=== PATIENT | female | born 1960 | race Hispanic/Latino ===

== ENCOUNTER 2017-10-07 10:36 | Observation (INO) | payer MEDICARE, OTHER ==
[~2017-10-07] VITALS: Ht 157.5 cm; Wt 107.3 kg
[~2017-10-07 10:36] MED LIST: ACTOS45 MG PO; ALLOPURINOL100 MG PO; ASPIR 8181 MG PO; ATENOLOL100 MG PO; CIPRO500 MG PO; CLINDAMYCIN HC150 MG PO; CLONIDINE HCL0.3 MG PO; CYCLOBENZAPRINE5 MG PO; HUMALOG100 UNITS/ SC; HYDROCHLOROTH12.5 M1 PO; HYDROCODON-ACE1 EA12 PO; K DUR10 MEQ PO; LANTUS100 UNITS/ SQ; LASIX40 MG PO; LEVOCETIRIZINE D5 MG PO; LISINOPRIL20 MG PO; LOSARTAN POTAS100 MG PO; PEPCID40 MG PO; PLAVIX75 MG PO; PRAVASTATIN SOD40 MG PO; TOPIRAMATE25 MG PO; TRAZODONE HCL50 MG PO; TYLENOL # 31 EA PO; TYLENOL WITH C1 EAC1 PO; TYLENOL WITH C1 EACH PO; ULTRAM 50MG50 MG PO
[2017-10-07] MEDS ORDERED: ASPIRIN 81 MG CHEW TAB PO ONE ×2 (11:00→12:45)
[2017-10-07 11:20] LABS: BASOPHILS % 0.6 % (0.0-1.0); EOSINOPHILS # (AUTO) 0.4 (0.0-0.4); EOSINOPHILS % 5.3 % (0.0-6.0); HEMATOCRIT 32.3 % (34.2-44.1); HEMOGLOBIN 10.6 g/dL (12.0-16.0); LYMPHOCYTES # (AUTO) 1.1 (1.0-3.2); LYMPHOCYTES % 16.9 % (18.0-39.1); MEAN CORPUSCULAR HEMOGLOBIN 31.4 pg (28-32); MEAN CORPUSCULAR HGB CONC 32.8 g/dL (31-35); MEAN CORPUSCULAR VOLUME 95.6 fL (81-99); MONOCYTES # (AUTO) 0.5 (0.2-0.8); MONOCYTES % 6.9 % (4.4-11.3); NEUTROPHILS # (AUTO) 4.6 (2.1-6.9); NEUTROPHILS % 69.8 % (38.7-80.0); PLATELET COUNT 266 x10e3/uL (140-360); RED BLOOD COUNT 3.38 x10e6/uL (3.6-5.1); RED CELL DISTRIBUTION WIDTH 13.9 % (11.7-14.4)
[2017-10-07 11:22] LABS: CLARITY,URINE CLEAR (CLEAR); COLOR,URINE YELLOW (YELLOW); KETONES,URINE NEGATIVE (NEGATIVE); LEUKOCYTE ESTERASE ,URINE NEGATIVE (NEGATIVE); NITRITE,URINE NEGATIVE (NEGATIVE); PROTEIN,URINE DIPSTICK NEGATIVE (NEGATIVE)
[2017-10-07 11:23] LABS: BILIRUBIN,URINE NEGATIVE (NEGATIVE); URINE UROBILINOGEN 1 mg/dL (0.2 - 1)
[2017-10-07 11:24] LABS: AMPHETAMINES SCREEN,URINE POSITIVE (NEGATIVE); BENZODIAZEPINES SCREEN,URINE NEGATIVE (NEGATIVE); PHENCYCLIDINE SCREEN,URINE NEGATIVE (NEGATIVE)
[2017-10-07 11:28] LABS: INR 1.13; PARTIAL THROMBOPLASTIN TIME 29.2 seconds (23.8-35.5); PROTHROMBIN TIME 13.6 seconds (11.9-14.5)
[2017-10-07 11:36] LABS: ALBUMIN 3.8 g/dL (3.5-5.0); ALBUMIN/GLOBULIN RATIO 1.2 (0.8-2.0); ANION GAP 14.6 mmol/L (8-16); CALCIUM 9.5 mg/dL (8.4-10.2); CREATININE, SERUM 1.84 mg/dL (0.57-1.11); POTASSIUM 3.6 mmol/L (3.5-5.1)
[2017-10-07 11:42] LABS: CREATINE KINASE MB 1.3 ng/mL (0-5.0)
[2017-10-07 11:46] LABS: BACTERIA,URINE MODERATE /HPF; EPITHELIAL CELLS,URINE MODERATE /LPF; RBC,URINE 0-5 /HPF (0-5); WBC,URINE (MAN) 0-5 /HPF (0-5)
[2017-10-07] MEDS ORDERED: ONDANSETRON HCL INJ 2 MG/ML VIAL IV PRN (12:45)
[2017-10-07] MEDS: SODIUM CHLORIDE 0.9% 1000ML 1,000 ML IV SCH ×2 (12:55→21:55)
--- NOTE | 2017-10-07 13:16 | Diagnostic Imaging Report ---
EXAMINATION: CHEST 2 VIEWS INDICATION: \S\ORDER PLACED BY \[id number] \S\[id number] \S\Y COMPARISON: Chest radiograph 12/06/2016 FINDINGS: PA and lateral views TUBES and LINES: None. LUNGS: Lungs are well inflated. Stable linear atelectasis in the left lower lobe. There is no evidence of pneumonia or pulmonary edema. PLEURA: No pleural effusion or pneumothorax. HEART AND MEDIASTINUM: The cardiomediastinal silhouette is unremarkable. BONES AND SOFT TISSUES: Mild multilevel degenerative changes of the thoracic spine. Soft tissues are unremarkable. UPPER ABDOMEN: No free air under the diaphragm. IMPRESSION: No acute thoracic abnormality. A stable subsegmental atelectasis in the left lower lobe. Signed by: Dr. Elina Goel M.D. on 10/07/2017 1:12 PM
[2017-10-07 13:35] VITALS: BP 158/75
[2017-10-07 14:00] VITALS: BP 158/75
[2017-10-07 14:29] VITALS: BP 158/75
[2017-10-07] MEDS ORDERED: BUMETANIDE1 MG PO (14:48)
[2017-10-07] MEDS ORDERED: LISINOPRIL10 MG PO (14:48)
[2017-10-07] MEDS ORDERED: AMBIEN10 MG PO (14:48)
[2017-10-07] MEDS ORDERED: LANTUS 3ML100 UNITS/ SC (14:48)
[2017-10-07] MEDS ORDERED: AMLODIPINE BESYL5 MG PO (14:48)
[2017-10-07] MEDS ORDERED: CLONIDINE HCL0.3 MG PO (14:48)
[2017-10-07] MEDS ORDERED: ZOFRAN ODT4 MG PO (14:48)
[2017-10-07] MEDS ORDERED: AMLODIPINE BESYLATE 5 MG TAB PO SCH (15:45)
[2017-10-07] MEDS ORDERED: HYDRALAZINE HCL 20 MG/ML VIAL IV PRN ×2 (16:00→16:30)
[2017-10-07] MEDS ORDERED: INSULIN DETEMIR 100 UNIT/ML PEN SQ SCH (16:00)
[2017-10-07] MEDS ORDERED: DEXTROSE 50% SYRINGE 50 ML IV PRN (16:00)
[2017-10-07 16:23] VITALS: BP 116/53
[2017-10-07] MEDS: FAMOTIDINE 20 MG TAB PO SCH (16:56)
[2017-10-07] MEDS: INSULIN REGULAR, HUMAN 100 UNIT/1 ML 3ML VIAL SQ SCH ×2 (16:56→21:35)
--- NOTE | 2017-10-07 17:08 | History and Physical ---
PRIMARY CARE PROVIDER: Dr. Aguilar. CHIEF COMPLAINT: Chest pain and vertigo. HISTORY OF PRESENT ILLNESS: Ms. Alejandra is a 57-year-old lady who had an episode of vertigo at home followed by some chest tightness, and EMS was called and the patient was transported to the ER. She was asymptomatic in the ER. REVIEW OF SYSTEMS: She denies fever, chills or weight loss. She denies sinus congestion or sore throat. She had chest pain and tightness as noted without diaphoresis or shortness of breath. She denies shortness of breath, wheezing or cough. She denies abdominal pain, nausea, vomiting or melena. She denies dysuria or flank pain. She denies rash or pruritus. She denies joint pain or swelling. She denies bleeding or bruising. She denies headache. She does complain of a transient episode of vertigo, and she denies any loss of consciousness. She denies depression, agitation, homicidal or suicidal ideation. PAST MEDICAL HISTORY: Significant for hypertension, type 2 diabetes, coronary artery disease, diastolic congestive heart failure, and chronic kidney disease stage 3. Her regular medications include: Allopurinol 100 mg daily. Norvasc 5 mg daily. Plavix 75 mg daily. Lisinopril 20 mg daily. Pravastatin 40 mg daily. Ambien 10 mg at bedtime. Lantus insulin 30 units before breakfast and Humalog 10 units before each meal. Clonidine 0.3 mg at bedtime. Bumex 1 mg daily. Tramadol as needed for pain. She has a history of 4 coronary stents placed 4 years ago when she had a heart attack. She has had bilateral total knee replacements, and she has had a cholecystectomy. SHE HAS NO KNOWN DRUG ALLERGIES. FAMILY HISTORY: Significant for hypertension, diabetes and heart disease. SOCIAL HISTORY: The patient is . She is bilingual, and she does speak fairly good Amharic. She does not smoke, drink or use illegal drugs, and she is generally independently functioning. PHYSICAL EXAM: PSYCHIATRIC: She is alert and oriented times 3 with normal mood and affect. CONSTITUTIONAL: She has a normal body habitus. Is in no acute distress. VITAL SIGNS: Blood pressure 158/75. Pulse 69 and regular. Respiratory rate 16. O2 sat 99%. Temperature 96.5. HEENT: Her head is atraumatic. Her eyes are anicteric with clear conjunctivae. Ears and nares are without erythema or discharge. Oropharynx is clear. NECK: Is supple with no mass or thyromegaly. LYMPHATIC SYSTEM: She has no palpable cervical, axillary or inguinal adenopathy. CARDIOVASCULAR: Her heart has a regular rate and rhythm without murmur or extra heart sound. She has no peripheral edema. She has palpable dorsal pedal pulses. RESPIRATORY: Lungs are clear to auscultation and percussion with normal respiratory effort. GASTROINTESTINAL: Her abdomen is soft without organomegaly, masses or tenderness. She has normal bowel sounds present. CUTANEOUS: Her skin is warm and dry to the touch with no rash or skin breakdown. MUSCULOSKELETAL: Her joints are in normal alignment without erythema or swelling. She has no calf tenderness. NEUROLOGIC: Exam is nonfocal with intact cranial nerves and no motor or sensory deficits. DIAGNOSTIC STUDIES AND LABORATORY: Chest x-ray shows no acute disease. Her EKG shows normal sinus rhythm with possible old anterior WI. Her initial troponin 0.014. Her chemistry panel shows normal electrolytes. CO2 is 25. Creatinine 1.84, BUN 35 for a GFR of 28. Calcium is 9.5. Glucose is 230. Transaminases, bilirubin and alk phos are normal. CBC shows a white count of 6.6 with 70% neutrophils and 17% lymphocytes, hemoglobin 10.6, hematocrit 32.3 and platelet count 266,000. Coags are normal. IMPRESSION AND PLAN: 1. Chest pain, rule out acute coronary syndrome. The patient will have serial cardiac enzymes done and we will consult Cardiology in view of her history of coronary disease to assess risk stratification for any further diagnostic testing. 2. Hypertension complicated by coronary artery disease, complicated by diastolic congestive heart failure and complicated by chronic kidney disease stage 3. The patient's blood pressure is controlled. Will continue Norvasc and lisinopril but will hold Bumex and will use p.r.n. hydralazine for elevated blood pressure. 3. Type 2 diabetes complicated by chronic kidney disease stage 3. Will continue with Lantus 20 units daily and sliding-scale insulin as needed. 4. Acute kidney injury on chronic kidney disease stage 3. Patient's baseline is above 30, around 35. Will give IV fluids overnight for hydration. Will hold her Bumex and recheck her labs in the morning. 5. For prophylaxis, the patient will be using SCDs for DVT prophylaxis and Pepcid for GI prophylaxis. Job#: [id number] EV
[2017-10-07 19:15] VITALS: BP 133/60
[2017-10-07] MEDS ORDERED: ZOLPIDEM TARTRATE 10 MG TAB PO SCH (21:00)
[2017-10-07] MEDS ORDERED: PRAVASTATIN 20 MG TAB PO SCH (21:00)
[2017-10-07] MEDS ORDERED: NON-FORMULARY MEDICATION (Pravastatin Sodium 40 MG) PO SCH (21:00)
[2017-10-07 21:49] VITALS: BP 133/60
[2017-10-07] MEDS ORDERED: ACETAMINOPHEN 325 MG TAB PO PRN (22:00)
[2017-10-08 00:31] VITALS: BP 131/59
[2017-10-08 05:04] VITALS: BP 141/63
[2017-10-08] MEDS: SODIUM CHLORIDE 0.9% 1000ML 1,000 ML IV SCH (05:06)
[2017-10-08 05:19] LABS: BASOPHILS % 0.8 % (0.0-1.0); EOSINOPHILS # (AUTO) 0.4 (0.0-0.4); EOSINOPHILS % 8.3 % (0.0-6.0); HEMOGLOBIN 10.3 g/dL (12.0-16.0); LYMPHOCYTES # (AUTO) 1.4 (1.0-3.2); LYMPHOCYTES % 26.7 % (18.0-39.1); MEAN CORPUSCULAR HGB CONC 32.2 g/dL (31-35); MEAN CORPUSCULAR VOLUME 96.4 fL (81-99); MONOCYTES # (AUTO) 0.4 (0.2-0.8); MONOCYTES % 7.7 % (4.4-11.3); NEUTROPHILS # (AUTO) 2.9 (2.1-6.9); NEUTROPHILS % 55.9 % (38.7-80.0); PLATELET COUNT 237 x10e3/uL (140-360); RED BLOOD COUNT 3.32 x10e6/uL (3.6-5.1); RED CELL DISTRIBUTION WIDTH 13.7 % (11.7-14.4)
[2017-10-08 05:40] LABS: ANION GAP 13.7 mmol/L (8-16); CALCIUM 9.1 mg/dL (8.4-10.2); CREATININE, SERUM 1.21 mg/dL (0.57-1.11); POTASSIUM 3.7 mmol/L (3.5-5.1)
--- NOTE | 2017-10-08 05:48 | Diagnostic Imaging Report ---
CHEST SINGLE (PORTABLE), 10/08/2017 7:00 AM Technique: CHEST SINGLE (PORTABLE) Comparison: 10/07/2017 12/06/2016 Clinical history: Chest pain Findings: Prominent cardiomediastinal silhouette, likely related to portable lordotic technique. No consolidation or edema. No effusion or pneumothorax. Impression: 1. Lines/Tubes: None 2. No acute abnormality. Signed by: Dr Isaura Nguyen MD on 10/08/2017 5:45 AM
[2017-10-08 05:49] LABS: MAGNESIUM 1.5 MG/DL (1.3-2.1)
[2017-10-08 05:50] LABS: CREATINE KINASE MB 0.6 ng/mL (0-5.0)
[2017-10-08 06:16] LABS: THYROID STIMULATING HORMONE 2.037 uIU/mL (0.350-4.940)
[2017-10-08 07:00] VITALS: BP 151/70
[2017-10-08] MEDS: INSULIN REGULAR, HUMAN 100 UNIT/1 ML 3ML VIAL SQ SCH ×2 (07:30→11:30)
[2017-10-08] MEDS: FAMOTIDINE 20 MG TAB PO SCH (07:53)
[2017-10-08] MEDS ORDERED: LISINOPRIL 10 MG TAB PO SCH (09:00)
[2017-10-08] MEDS ORDERED: CLOPIDOGREL BISULFATE 75 MG TAB PO SCH (09:00)
[2017-10-08] MEDS ORDERED: ALLOPURINOL 100 MG TAB PO SCH (09:00)
[2017-10-08] MEDS ORDERED: AMLODIPINE BESYLATE 5 MG TAB PO SCH (09:00)
[2017-10-08] MEDS ORDERED: ASPIRIN 81 MG ENTERIC COATED PO SCH (09:00)
[2017-10-08] MEDS ORDERED: INSULIN DETEMIR 100 UNIT/ML PEN SQ SCH (09:00)
--- NOTE | 2017-10-08 11:14 | Diagnostic Imaging Report ---
EXAMINATION: Head CT HISTORY: Dizziness since the day before. COMPARISON: None. TECHNIQUE: Multidetector axial images were obtained without contrast from the foramen magnum to the vertex . The images were reconstructed using brain and bone algorithms. Thin section brain images were reformatted into coronal and sagittal planes. Intravenous contrast: None. Image quality: Motion/streaking artifact limits the evaluation of the skull base and posterior cranial fossa. Dose modulation, iterative reconstruction, and/or weight based adjustment of the mA/kV was utilized to reduce the radiation dose to as low as reasonably achievable. FINDINGS: Parenchyma: 1. No abnormal densities. 2. No mass or hemorrhage. No CT evidence of acute territorial vascular insult. Extra-axial spaces:No abnormal density. No extra-axial fluid collections Brain volume: Normal for age. Ventricles: No hydrocephalus or displacement. Arteries: Mild atherosclerotic plaque in the carotid siphons. Dural sinuses: No abnormal density. Extra-axial spaces: No abnormal density. Foramen magnum: No mass, Chiari malformation, or basilar invagination. Sella: No obvious mass. Paranasal/mastoid sinuses: Imaged portions unremarkable. Skull/Scalp: No lytic or blastic lesions. No fractures. IMPRESSION: No acute abnormalities. Specifically, no mass, hemorrhage or acute territorial vascular insult. Preliminary report dictated by Dr. Jackeline Raphael, Neuroradiology Fellow. A final report by the attending radiologist will follow. The preliminary report was reviewed and a final report issued by Dr. Austin neuroradiologist on 10/08/2017 at 4:44 PM. Signed by: Dr. Amira Austin M.D. on 10/08/2017 4:44 PM
[2017-10-08 11:49] VITALS: BP 175/86
[2017-10-08 12:30] VITALS: BP 157/88
--- NOTE | 2017-10-09 01:03 | Discharge Summary ---
ADMISSION DIAGNOSES 1. Chest pain, ruled out acute coronary syndrome. 2. Hypertension, complicated by coronary artery disease, diastolic congestive heart failure, and chronic kidney disease 3. 3. Type-2 diabetes, complicated by chronic kidney disease 3. 4. Acute kidney injury on chronic kidney disease 3. DISCHARGE DIAGNOSES 1. Chest pain, ruled out acute coronary syndrome. 2. Hypertension, complicated by coronary artery disease, diastolic congestive heart failure, and chronic kidney disease 3. 3. Type-2 diabetes, complicated by chronic kidney disease 3. 4. Acute kidney injury on chronic kidney disease 3. 5. Ruled out myocardial infarction. HISTORY: Patient has a history of hypertension, type-2 diabetes, CAD, diastolic congestive heart failure and chronic kidney disease stage 3, SD. Surgical history of 4 coronary stents placed 4 years ago, bilateral total knee replacements and cholecystectomy. HOSPITAL COURSE: A 57-year-old female had an episode of vertigo at home followed by some chest tightness. EMS was called and patient transported to the ER. She was asymptomatic in the ER. On admission, patient had a chest x-ray, which was negative. Brain CT, which was negative. Troponins were negative times 3. EKG was normal sinus rhythm. Urine cultures negative. Vital signs stable. Patient afebrile. Cardiology consulted who does not want to do a workup. Patient will discharge home and follow up with PCP in 1-2 weeks. Patient understands discharge instruction and agrees to plan. Dictated By: Anayeli Cordova NP Job#: [id number] CQ
== END 2017-10-08 14:23 | disposition home or self-care (01) ==
LOC: ER 10:36 → ERHOLD 13:01 → IMCU 13:35
PROVIDERS: ADMIT Internal Medicine; ATTEND Internal Medicine
DX: R07.9 Chest pain, unspecified (principal); R42 Dizziness and giddiness; E11.22 Type 2 diabetes mellitus with diabetic chronic kidney disease; I13.0 Hypertensive heart and chronic kidney disease with heart failure and stage 1 through stage 4 chronic kidney disease, or unspecified chronic kidney disease; N18.3 Chronic kidney disease, stage 3 (moderate); I50.30 Unspecified diastolic (congestive) heart failure; N17.9 Acute kidney failure, unspecified; I25.10 Atherosclerotic heart disease of native coronary artery without angina pectoris; E66.01 Morbid (severe) obesity due to excess calories; Z95.5 Presence of coronary angioplasty implant and graft; Z96.653 Presence of artificial knee joint, bilateral; I25.2 Old myocardial infarction; Z83.3 Family history of diabetes mellitus; Z82.49 Family history of ischemic heart disease and other diseases of the circulatory system; Z68.41 Body mass index [BMI] 40.0-44.9, adult; Z79.4 Long term (current) use of insulin
CPT/HCPCS: 36415 ×2; 70450; 71045; 71046; 80048; 80053; 80307; 81001; 82550 ×2; 82553 ×2; 82948 ×2; 83735; 83880; 84443; 84484 ×2; 85025 ×2; 85610; 85730; 87086; 93005 ×2; 93306; 93880; 96372; 99284; G0378 ×2; J7030 ×2

== ENCOUNTER → 2020-12-15 | Outpatient (CLI) | payer MEDICARE, OTHER ==
[~2020-12-15] MED LIST changes: +AMBIEN10 MG PO; +AMLODIPINE BESYL5 MG PO; +BUMETANIDE1 MG PO; +LANTUS 3ML100 UNITS/ SC; +LISINOPRIL10 MG PO; +ZOFRAN ODT4 MG PO
== END ==
LOC: DX 11:28
PROVIDERS: ATTEND Internal Medicine
DX: Z13.820 Encounter for screening for osteoporosis (principal); M54.50 Low back pain, unspecified
CPT/HCPCS: 72100; 77080

== ENCOUNTER → 2021-08-12 | Outpatient (CLI) | payer MEDICARE, OTHER | LOC: MAMMO 12:23 | PROVIDERS: ATTEND Internal Medicine | DX: Z12.31 Encounter for screening mammogram for malignant neoplasm of breast (principal) | CPT/HCPCS: 77067 ==

== ENCOUNTER → 2021-09-17 | Outpatient (CLI) | payer MEDICARE, OTHER | LOC: MAMMO 09:51 | PROVIDERS: ATTEND Internal Medicine | DX: N64.89 Other specified disorders of breast (principal); R92.8 Other abnormal and inconclusive findings on diagnostic imaging of breast; M25.512 Pain in left shoulder; M19.012 Primary osteoarthritis, left shoulder ==